=== PATIENT | male | born 1955 | race American Indian/Alaskan Native ===

== ENCOUNTER 2017-12-20 09:10 | Emergency (ER) | payer OTHER, BC ==
[2017-12-20 09:27] VITALS: RESP 16; TEMP 97.6
--- NOTE | 2017-12-20 09:27 | ED PDOC ---
Arrival/HPI - General Chief Complaint: Upper Extremity Problem/Injury Time Seen by Provider: 12/20/17 09:17 Historian: Patient - History of Present Illness Narrative History of Present Illness (Text): 12/20/17 09:24 pt p/w + right wrist/distal arm pain following a work-related injury yesterday night while working at the [employer]; pt states while releasing the door handle using a chain-like device, the chain somehow wrapped around his right wrist and caused further pain; pt state he went home and slept, this morning + worsening right wrist pain, worse pain with movement; pt states no fever/chills/sweats, no cp/sob/palpitations, no abd pain, no n/v, no numbness/tingling, no urinary/ bowel changes, no fall/travel/sick contact; pt denied other complaints; pt is here for further eval pt is right hand dominate Time/Duration: 24 hours Symptom Onset: Sudden Symptom Course: Unchanged Quality: Throbbing Severity Level: 8, Severe Activities at Onset: Rest Context: Work Past Medical History - Provider Review Nursing Documentation Reviewed: Yes - Travel History Have you recently traveled outside [place] w/in the past 3 mons?: No - Past History Past History: No Previous - Infectious Disease Hx of Infectious Diseases: None - Musculoskeletal/Rheumatological Hx Gout: Yes (right knee) - Psychiatric Hx Substance Use: No - Surgical History Hx Orthopedic Surgery: Yes (Left hand) Family/Social History - Physician Review Nursing Documentation Reviewed: Yes Family/Social History: No Known Family HX Smoking Status: Unknown If Ever Smoked Hx Alcohol Use: No Hx Substance Use: No Hx Substance Use Treatment: No Allergies/Home Meds Allergies/Adverse Reactions: Allergies No Known Allergies Allergy (Verified 12/20/17 09:21) Review of Systems - Review of Systems Constitutional: Normal Eyes: Normal ENT: Normal Respiratory: Normal Cardiovascular: Normal Gastrointestinal: Normal Genitourinary Male: Normal Musculoskeletal: Other (right wrist pain) Skin: Normal Neurological: Normal Endocrine: Normal Hemo/Lymphatic: Normal Physical Exam Vital Signs Reviewed: Yes Vital Signs Temp Pulse Resp BP Pulse Ox 12/20/17 11:44 76 16 141/99 H 97 12/20/17 09:26 97.6 F 82 16 139/95 H 98 Temperature: Afebrile Blood Pressure: Hypertensive Pulse: Regular Respiratory Rate: Normal Appearance: Positive for: Well-Appearing, Other (uncomfortable, sitting on exam bed; alert/awake, cooperative, NAD, follows commands with ease) Pain Distress: None Mental Status: Positive for: Alert and Oriented X 3 - Systems Exam Head: Present: Atraumatic, Normocephalic Pupils: Present: PERRL, Other (visual field intact b/l, no nystagmus, no photophobia, sclera anicteric) Extroacular Muscles: Present: EOMI Conjunctiva: Present: Normal Ears: Present: Normal Mouth: Present: Moist Mucous Membranes, Normal Teeth Pharnyx: Present: Normal Nose (External): Present: Atraumatic Nose (Internal): Present: Normal Inspection Neck: Present: Normal Range of Motion, Trachea Midline. No: MIDLINE TENDERNESS Respiratory/Chest: Present: Clear to Auscultation, Good Air Exchange Cardiovascular: Present: Regular Rate and Rhythm, Normal S1, S2 Abdomen: Present: Normal Bowel Sounds, Other (well nourished male, no focal tenderness, no godfrey's sign, no mcburney's point tenderness) Back: Present: Normal Inspection. No: Midline Tenderness Upper Extremity: Present: NORMAL PULSES, Swelling, Neurovascularly Intact, Other (right lateral wrist tenderness on exam, noted faint skin erythema over the wrist region, decr ROM to right wrist due to tenderness, no gross deformities/swellings noted, neurovasc intact b/l, strength 5/5 grossly intact in all limbs). No: Normal ROM Lower Extremity: Present: Normal Inspection, NORMAL PULSES, Normal ROM, Neurovascularly Intact, Capillary Refill < 2 s Neurological: Present: GCS=15, CN II-XII Intact, Speech Normal Skin: Present: Warm, Normal Color Psychiatric: Present: Alert, Oriented x 3 Medical Decision Making ED Course and Treatment: 12/20/17 09:31 Impression: r/o fracture, possible gout i have consider all the differential diagnosis regarding pt's chief medical complaints/clinical findings, including but are not limited to: r/o fx, possible gout A/P: r/o fx, possible gout - xray - splint - pain control - observe - supportive care 12/20/2017 11:09 Hand X-Ray IMPRESSION: No acute displaced fracture, dislocation, or significant joint effusion identified. If symptoms persist, or if there is continued clinical concern, x-ray follow-up 7-10 days should be considered. Dictator: Yana Kirby MD 12/20/2017 11:10 Wrist X-Ray IMPRESSION: No acute displaced fracture, dislocation, or significant joint effusion identified. If symptoms persist, or if there is continued clinical concern, x-ray follow- up in 7-10 days should be considered. Dictator: Yana Kirby MD 12/20/17 12:16 pt is doing well, still with some wrist pain vital signs: noted elevated BP pt will receive a wrist splint pt is made aware of his medical results pt is encouraged no heavy weight bearing pt will keep the wrist in splint pt will f/u as directed pt will be discharged home 12/20/17 12:17 Re-evaluation Time: 12:10 Reassessment Condition: Improving,but remains with symptoms - RAD Interpretation Narrative RAD Interpretations (Text): 12/20/17 12:10 PROCEDURE: Right hand radiographs Right wrist radiographs HISTORY: r/o fracture COMPARISON: None available. FINDINGS: BONES: No acute displaced fracture. JOINTS: No dislocation. SOFT TISSUES: Unremarkable. No evidence of radiopaque foreign body. OTHER FINDINGS: None. IMPRESSION: No acute displaced fracture, dislocation, or significant joint effusion identified. If symptoms persist, or if there is continued clinical concern, x-ray follow-up in 7-10 days should be considered. 12/20/17 12:10 Right wrist radiographs HISTORY: r/o fracture COMPARISON: None available. FINDINGS: BONES: No acute displaced fracture. JOINTS: No dislocation. SOFT TISSUES: Unremarkable. No evidence of radiopaque foreign body. OTHER FINDINGS: None. IMPRESSION: No acute displaced fracture, dislocation, or significant joint effusion identified. If symptoms persist, or if there is continued clinical concern, x-ray follow-up in 7-10 days should be considered. Radiology Orders: 12/20/17 09:22 HAND RIGHT 3 VIEWS [RAD] Stat 12/20/17 09:23 WRIST, RIGHT 3 VIEWS [RAD] Stat [employer] Supervisor: Radiologist - Medication Orders Current Medication Orders: Discontinued Medications Ibuprofen (Motrin Tab) 600 mg PO STAT STA Stop: 12/20/17 09:23 Last Admin: 12/20/17 09:37 Dose: 600 mg MAR Pain/Vitals Document 12/20/17 09:37 OCS (Rec: 12/20/17 09:38 OCS [id number]) Pain Reassessment Is This A Pain ReAssessment? Yes Sleep Is patient sleeping during reassessment? No Presence of Pain Presence of Pain Yes Pain Scale Used Pain Scale Used Numeric Location Left, Right or Bilateral Right Pain Location Body Site Wrist Description Constant Intensity 10 Scale Used Numeric Aggravating Factors ADL's Disposition/Present on Arrival - Present on Arrival Any Indicators Present on Arrival: No History of DVT/PE: No History of Uncontrolled Diabetes: No Urinary Catheter: No History of Decub. Ulcer: No History Surgical Site Infection Following: None - Disposition Have Diagnosis and Disposition been Completed?: Yes Diagnosis: Strain of wrist, right, Contusion of wrist, right Disposition: HOME/ ROUTINE Disposition Time: 12:11 Patient Plan: Discharge Patient Problems: Current Active Problems Problem Status Onset Contusion of wrist, right Acute Strain of wrist, right Acute Condition: STABLE Discharge Instructions (ExitCare): Wrist Injury (ED) Print Language: AFGHAN Additional Instructions: Make sure to see your doctor in 1-2 days AVOID heavy lifting keep wrist in splint Rest your wrist ICE your wrist 15min/hr over the next 1-2 days DRINK PLENTY OF FLUIDS take your medications as prescribed RETURN TO ED IF worse pain, cant breath, persistent vomiting, high fever >101- 102 for hours, altered behavior, unable to urinate, heavy/persistent bleeding, passing out, chest pain, or other medical emergencies Prescriptions: Ibuprofen [Motrin] 600 mg PO QID PRN #30 tab PRN Reason: Pain, Mild (1-3) oxyCODONE/Acetaminophen [Percocet 5/325 mg Tab] 1 tab PO TID PRN #12 tab PRN Reason: Pain, Moderate (4-7) Referrals: Christopher Fang, [Primary Care Provider] - Follow up with primary Jonathan Alvarez III, MD [Medical Doctor] - Follow up with primary Forms: [employer] (Indonesian), WORK NOTE
--- NOTE | 2017-12-20 11:11 | RAD ---
PROCEDURE: Right hand radiographs Right wrist radiographs HISTORY: r/o fracture COMPARISON: None available. FINDINGS: BONES: No acute displaced fracture. JOINTS: No dislocation. SOFT TISSUES: Unremarkable. No evidence of radiopaque foreign body. OTHER FINDINGS: None. IMPRESSION: No acute displaced fracture, dislocation, or significant joint effusion identified. If symptoms persist, or if there is continued clinical concern, x-ray follow-up in 7-10 days should be considered.
[2017-12-20 11:45] VITALS: BP 141/99; PULSE 76; O2SAT 97
== END 2017-12-20 12:23 | disposition home or self-care (01) ==
LOC: ED 09:10
DX: S66.911A Strain of unspecified muscle, fascia and tendon at wrist and hand level, right hand, initial encounter (principal); S60.211A Contusion of right wrist, initial encounter; X58.XXXA Exposure to other specified factors, initial encounter; Y92.59 Other trade areas as the place of occurrence of the external cause; Y99.0 Civilian activity done for income or pay